=== PATIENT | male | born 1985 | race African-American/Black ===

== ENCOUNTER 2017-01-05 15:05 | Emergency (ER) | payer BC, OTHER ==
[~2017-01-05] VITALS: Ht 193 cm; Wt 99.8 kg
[~2017-01-05 15:05] MED LIST: AMOXICILLIN875 MG PO; BACTRIM DS TAB1 EACH PO; FLEXERIL PO; IBUPROFEN 600600 M1 PO; KEFLEX500 MG PO; NAPROSYN500 MG PO; NOHOMEMEDICATIONS; NORCO 5-325 TA1 EACH PO; NORFLEX100 MG PO; PERCOCET 5-3251 EACH PO; PROMETHAZINE-C120 ML PO; TRAMADOL 50 MG50 MG PO; ULTRAM 50MG TAB50 MG PO
[2017-01-05 15:29] VITALS: BP 133/80
[2017-01-05] MEDS ORDERED: PEPCID20 MG PO (15:38)
[2017-01-05] MEDS ORDERED: ACYCLOVIR 200200 MG PO (15:38)
[2017-01-05] MEDS ORDERED: NEURONTIN 300300 M1 PO (15:58)
== END 2017-01-05 15:58 | disposition home or self-care (01) ==
LOC: ER 15:05
DX: B00.9 Herpesviral infection, unspecified (principal); Z98.890 Other specified postprocedural states

== ENCOUNTER 2017-06-22 11:29 | Emergency (ER) | payer BC, OTHER ==
[~2017-06-22] VITALS: Ht 193 cm; Wt 102.1 kg
[~2017-06-22 11:29] MED LIST changes: +ACYCLOVIR 200200 MG PO; +NEURONTIN 300300 M1 PO; +PEPCID20 MG PO
[2017-06-22 11:35] VITALS: BP 131/72
[2017-06-22] MEDS ORDERED: FLEXERIL PO (11:58)
== END 2017-06-22 12:21 | disposition home or self-care (01) ==
LOC: ER 11:29
DX: M25.511 Pain in right shoulder (principal)